=== PATIENT | female | born 1960 | race Caucasian/White ===

== ENCOUNTER → 2019-11-29 13:19 | Outpatient (BNVA) | payer MEDICARE, SELFPAY | PROVIDERS: Visit Provider Nurse Practitioner Family | DX: I10 Essential (primary) hypertension (principal); E11.9 Type 2 diabetes mellitus without complications; J44.9 Chronic obstructive pulmonary disease, unspecified; F32.9 Major depressive disorder, single episode, unspecified; E78.5 Hyperlipidemia, unspecified; E03.9 Hypothyroidism, unspecified; G62.9 Polyneuropathy, unspecified; F17.200 Nicotine dependence, unspecified, uncomplicated; J44.1 Chronic obstructive pulmonary disease with (acute) exacerbation | CPT/HCPCS: 80053; 80061; 83036; 83721; 84443; 85025 ==

== ENCOUNTER → 2020-04-18 10:20 | Outpatient (BNVA) | payer MEDICARE, SELFPAY | PROVIDERS: Visit Provider Nurse Practitioner Family | DX: E11.9 Type 2 diabetes mellitus without complications (principal); E03.9 Hypothyroidism, unspecified | CPT/HCPCS: 80053; 80061; 83036; 83721; 84443; 85025 ==

== ENCOUNTER 2020-05-26 08:23 | Inpatient (IN) | payer MEDICARE, SELFPAY ==
[2020-05-26] VITALS (17 sets, daily range): BP systolic 108–172; BP diastolic 64–94; PULSE 75–92; RESP 15–26; TEMP 36.4–36.8; O2SAT 90–95; BMI 25.5
--- NOTE | 2020-05-26 08:27 | XRR_ITS ---
PROCEDURE INFORMATION: Exam: XR Chest, 1 View Exam date and time: 05/26/2020 8:54 AM Age: 59 years old Clinical indication: Dyspnea TECHNIQUE: Imaging protocol: XR of the chest Views: 1 view. COMPARISON: CTA Chest-Pulmonary Emb [id number] 11/14/2013 6:39 PM FINDINGS: Lungs: COPD, interstitial disease, and chronic granulomatous disease. Mild right basilar airspace disease. Pleural space: Questionable small right pleural effusion. Heart/Mediastinum: No cardiomegaly. Vasculature: Calcification of the thoracic aorta. Bones/joints: Osteopenia, degenerative change, and mild scoliosis. XR/XR chest 1V portable [id number] IMPRESSION: 1. COPD, interstitial disease, and chronic granulomatous disease. 2. Mild right basilar airspace disease.
--- NOTE | 2020-05-26 08:28 | ECG_ITS ---
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 Measurements Intervals [place] Rate: 83 P: 76 SD: 158 QRS: 100 QRSD: 98 T: 61 QT: 384 QTc: 451 Interpretive Statements SINUS RHYTHM POSSIBLE RIGHT VENTRICULAR HYPERTROPHY [SOME/ALL OF: PROMINENT R IN V1, LATE TRANSITION, RAD, BJ, SSS] Compared to ECG 08/21/2017 17:23:41 Atrial abnormality now present Sinus arrhythmia no longer present T-wave abnormality no longer present Electronically Signed On 05-26-2020 13:15:31 CDT by Yanira Slade M.D. [id number] f
--- NOTE | 2020-05-26 08:31 | W.ED.SOB ---
HPI - SOB/Dyspnea General: Chief Complaint: Shortness of Breath/Dyspnea Stated Complaint: RESP DISTRESS Time Seen by Provider: 05/26/20 08:24 Source: patient and EMS Mode of arrival: EMS Limitations: no limitations History of Present Illness: HPI Narrative: Rema is a nice 59-year-old female who comes in complaining of shortness of breath. She arrives via EMS and mild to moderate respiratory distress. She is able to answer questions decently. She denies any fever, loss of sense of taste or loss of sense of smell. She states her cough is worse than baseline and is changed in color from clear to yellow. She has audible wheezing and she states any type of exertion makes her symptoms worse. She is she has no fever or chills but does feel like she may have pneumonia. She denies any leg swelling or orthopnea. She denies any chest pain. Patient states her symptoms started last night and carried into this morning. Patient states that she is been using her oxygen as she is supposed to but this does not make her feel any better. Associated symptoms: Deny abdominal pain, chest congestion, chest pain, diaphoresis, dizziness, extremity pain, fever(s), hemoptysis, lightheadedness, nausea, orthopnea, palpitations, syncope or vomiting Review of Systems Const: Denies: fever(s), chills, body aches, fatigue, malaise or diaphoresis Eyes: Denies: change in vision, blurry vision, photophobia, eye discomfort, eye discharge or eye redness ENMT: Denies: throat pain, odynophagia, hoarseness, swelling of lips/tongue, ear or mastoid pain, ear discharge, change in hearing or nasal discharge Card: Denies: chest pain, palpitations, irregular heart rhythm, edema, lightheadedness, syncope, pre-syncope, dyspnea on exertion or orthopnea Resp: Reports: dyspnea, productive cough and wheezing; Denies: non-productive cough, hemoptysis or chest congestion GI: Denies: abdominal pain, nausea, vomiting, hematemesis, coffee ground emesis, heartburn, diarrhea, constipation, GI cramping, hematochezia or melena : Denies: flank pain, dysuria, urinary frequency, urinary urgency or hematuria Musc: Denies: neck pain, back pain, extremity pain, extremity swelling, joint pain, joint swelling, joint redness, joint warmth or joint stiffness Skin/Breast: Denies: rash, pruritus, erythema or skin tenderness Neuro: Denies: headache(s), numbness in extremities, weakness in extremities, sensory changes, lack of coordination, difficulty walking, dizziness, vertigo, confusion, Slurred speech present or seizure-like activity Alo/Lymph: Denies: easy bruising, easy bleeding, petechiae, purpura or enlarged lymph nodes All/Imm: Denies: urticaria, throat swelling, tongue swelling, facial swelling or acute wheezing PFSH ED PFSH: Medical History COPD (chronic obstructive pulmonary disease) Depression Diabetes Hyperlipidemia Hypothyroid Neuropathy Family History Brother Diabetes Father Cancer Mother Cancer Social History Smoking and tobacco status: current every day smoker cigarettes Packs smoked per day: 1.5 Second hand smoke exposure: No Alcohol intake: never Caregiver/support person: Yes Lives independently: Yes Housing: House Marital status: service: No Current occupational status: retired History of recent travel: No Current gender identity: Female Physical Exam Const: COMMON NORMALS: no acute distress, patient oriented x3, no limitations, healthy appearing and well nourished GENERAL APPEARANCE: cooperative, well kempt and well developed HENMT: COMMON NORMALS: normocephalic, atraumatic, external ears normal, EAC's normal and Normal external nose present HEAD & SCALP: normal to inspection, normocephalic and atraumatic FACE & SINUS: normal facial exam and face symmetric NOSE: Normal external nose present and Normal nares present EXTERNAL EAR: Yes external ears normal EXTERNAL AUDITORY CANAL: EAC's normal MOUTH: Normal oral and palatal mucosa present, lip normal and tongue normal Eye: COMMON NORMALS: Equal, round and reactive pupils present and conjunctivae normal GENERAL EYE: appearance normal, both eyes and all related structures ALIGNMENT: Yes alignment normal PERIORBITAL: periorbital findings normal EYELID: eyelids normal CONJUNCTIVA: Yes conjunctivae normal SCLERA: sclerae normal PUPIL: Yes Equal, round and reactive pupils present Neck/C-Spine: COMMON NORMALS: full ROM, no lymphadenopathy, supple, no meningeal signs and no JVD GENERAL: Yes normal visual inspection and Yes trachea midline Chest: COMMONS NORMALS: normal inspection of the chest and normal palpation of entire chest wall Resp: COMMON NORMALS: normal respiratory effort, No retractions and No use of accessory muscles EFFORT & INSPECTION: Yes able to speak in complete sentences, Yes symmetric chest movement, Yes tachypneic, Yes respiratory distress and Yes Actively coughing AUSCULTATION: no crackles, no rales, rhonchi and wheezes Cardio: COMMON NORMALS: no JVD, regular rate, regular rhythm, S1 normal heart sound present and S2 normal heart sound present RATE: regular rate RHYTHM: regular rhythm HEART SOUNDS: S1 normal heart sound present, S2 normal heart sound present, no click, no gallops, no murmurs, no rubs and abnormal split S2 GI: COMMON NORMALS: Soft to palpation and No hepatosplenomegaly present PALPATION: Yes Soft to palpation, No Tenderness to palpation present (GI), No Guarding due to palpation present (GI), No Rigid due to palpation, Yes No hepatosplenomegaly present, No Hernia present, No Palpable mass present and No Pulsatile mass present : COMMON NORMALS: Yes no CVA tenderness BLADDER/KIDNEY EXAM: Yes no CVA tenderness EXTERNAL FEMALE EXAM: No Hernia present Back/Pelvis: COMMON NORMALS: no CVA tenderness, thoracic and lumbar spine normal to inspection, no thoracic nor lumbar tenderness and thoraco-lumbar ROM normal Extremity: COMMON NORMALS: normal to inspection, full ROM, capillary refill normal, no joint enlargement, no clubbing, cyanosis or edema and no calf tenderness Neuro: COMMON NORMALS: patient oriented x3, CN's II-XII intact bilaterally, moves all extremities, no focal motor deficits and no sensory deficits noted MENINGEAL SIGNS: Yes no meningeal signs SPEECH: speech normal Psych: COMMON NORMALS: mental status grossly normal, Normal thought process present, cooperative, normal affect, speech normal and activity/motor behavior normal APPEARANCE: Yes well kempt SPEECH: Yes normal speech THOUGHT PROCESS: Normal thought process present Skin: COMMON NORMALS: no rashes or lesions noted, turgor normal, no jaundice, no petechiae and no mottling GENERAL SKIN EXAM: no rashes or lesions noted and turgor normal Course Vital Signs: Vital signs: Vital Signs Temperature 98.3 F 05/26/20 08:24 Pulse Rate 75 05/26/20 15:15 Respiratory Rate 24 H 05/26/20 15:15 Blood Pressure 124/74 05/26/20 15:15 Pulse Oximetry 95 05/26/20 15:15 MDM - SOB/Dyspnea MDM Narrative: Medical decision making narrative: 1200 -patient is no longer distress but still has audible wheezing. She still more hypoxic and her norm. Her cough is productive of colored sputum. There is no sign of acute coronary syndrome. Believe the patient will need to be admitted and continue BiPAP for a short time. The case was reviewed with Dr. Meyers and she agrees to come see the patient in the ER. Lab Data: Attestation: I reviewed the patient's lab results. Labs: Lab Results 05/26/20 05/26/20 05/26/20 Range/Units 08:42 08:45 08:45 WBC 5.8 (4.0-10.0) 10^3/ uL RBC 4.99 (4.1-5.3) 10^6/u L Hgb 15.6 H (11.5-15.3) g/dL Hct 48.6 H (37.0-47.0) % MCV 97.4 (81-99) fL MCH 31.3 (28.0-34.0) pg MCHC 32.1 (30.0-36.0) g/dL RDW 13.3 (12.1-15.1) % Plt Count 187 (130-400) 10^3/c mm MPV 10.9 H (7.4-10.4) fL Neut % (Auto) 56.3 % Lymph % (Auto) 26.6 % [place] % (Auto) 11.3 % Eos % (Auto) 4.2 % Baso % (Auto) 0.9 % Neut # (Auto) 3.24 (1.8-7.7) 10^3/u L Lymph # (Auto) 1.5 (0.8-4.8) 10^3/u L [place] # (Auto) 0.7 (0.2-0.9) 10^3/u L Eos # (Auto) 0.2 (0.0-0.8) 10^3/u L Baso # (Auto) 0.1 (0.0-0.1) 10^3/u L Nucleated RBC % (a uto) 0 % Nucleated RBCs # 0.0 /100WBC PT Cancelled INR Cancelled Specimen Type Arterial Sample Site Radial, left ABG pH 7.31 L (7.35-7.45) ABG pCO2 47.4 H (35-45) mmHg ABG pO2 68.6 L (80.0-100.0) mmH g ABG HCO3 24.0 (22-26) mmol/L ABG O2 Saturation 94.3 ABG Base Excess -2.7 L (-2.0-2.0) mmol/ L Phill Test Pos A-a O2 Gradient 13.5 H (5-10) mmHg Hematocrit 48.4 H (37-47) % Hgb O2 Saturation 90.1 L (95-100) % Carboxyhemoglobin 3.8 (0.4-20.1) %THgb Methemoglobin 0.6 (0.4-1.5) % Total Hemoglobin 15.8 (12-16) g/dL Sodium 140.0 (131-143) mmol/L Potassium 4.3 (3.5-5.0) mmol/L Glucose 168.0 H (70-115) mg/dL Ionized Calcium 1.2 (1.1-1.4) mmol/L O2 Delivery Device Nc O2 Liters/Min 3.0 % FiO2 32.0 % Correctional Captain ID Amh Chloride Carbon Dioxide Anion Gap BUN Creatinine GFR Calculation Calculated Osmolal ity Lactic Acid Calcium Magnesium Total Bilirubin AST ALT Alkaline Phosphata se Troponin T Baselin e Troponin T 120 [place] (0-10) ng/L Delta Troponin T (0-10) ABS# NT-Pro-B Natriuret Pep Total Protein Albumin Globulin Procalcitonin (0-0.5) ng/mL Urine Color (Yellow) Urine Appearance (CLEAR) Urine pH (5-7) Ur Specific Gravit y (1.005-1.030) Urine Protein (Negative) Urine Glucose (UA) (Normal) Urine Ketones (Negative) Urine Blood (Negative) Urine Nitrate (Negative) Urine Bilirubin (NEGATIVE) Urine Urobilinogen (Negative) mg/dL Ur Leukocyte Mirela ase (Negative) SARS-CoV-2 Ag (Rap id) (Negative) 05/26/20 05/26/20 05/26/20 Range/Units 08:45 08:45 08:45 WBC (4.0-10.0) 10^3/ uL RBC (4.1-5.3) 10^6/u L Hgb (11.5-15.3) g/dL Hct (37.0-47.0) % MCV (81-99) fL MCH (28.0-34.0) pg MCHC (30.0-36.0) g/dL RDW (12.1-15.1) % Plt Count (130-400) 10^3/c mm MPV (7.4-10.4) fL Neut % (Auto) % Lymph % (Auto) % [place] % (Auto) % Eos % (Auto) % Baso % (Auto) % Neut # (Auto) (1.8-7.7) 10^3/u L Lymph # (Auto) (0.8-4.8) 10^3/u L [place] # (Auto) (0.2-0.9) 10^3/u L Eos # (Auto) (0.0-0.8) 10^3/u L Baso # (Auto) (0.0-0.1) 10^3/u L Nucleated RBC % (a uto) % Nucleated RBCs # /100WBC PT INR Specimen Type Sample Site ABG pH (7.35-7.45) ABG pCO2 (35-45) mmHg ABG pO2 (80.0-100.0) mmH g ABG HCO3 (22-26) mmol/L ABG O2 Saturation ABG Base Excess (-2.0-2.0) mmol/ L Phill Test A-a O2 Gradient (5-10) mmHg Hematocrit (37-47) % Hgb O2 Saturation (95-100) % Carboxyhemoglobin (0.4-20.1) %THgb Methemoglobin (0.4-1.5) % Total Hemoglobin (12-16) g/dL Sodium Cancelled (131-143) mmol/L Potassium Cancelled (3.5-5.0) mmol/L Glucose Cancelled (70-115) mg/dL Ionized Calcium (1.1-1.4) mmol/L O2 Delivery Device O2 Liters/Min % FiO2 % Correctional Captain ID Chloride Cancelled Carbon Dioxide Cancelled Anion Gap Cancelled BUN Cancelled Creatinine Cancelled GFR Calculation Cancelled Calculated Osmolal ity Cancelled Lactic Acid Cancelled Calcium Cancelled Magnesium Cancelled Total Bilirubin Cancelled AST Cancelled ALT Cancelled Alkaline Phosphata se Cancelled Troponin T Baselin e Cancelled Troponin T 120 [place] (0-10) ng/L Delta Troponin T (0-10) ABS# NT-Pro-B Natriuret Pep Cancelled Total Protein Cancelled Albumin Cancelled Globulin Cancelled Procalcitonin (0-0.5) ng/mL Urine Color (Yellow) Urine Appearance (CLEAR) Urine pH (5-7) Ur Specific Gravit y (1.005-1.030) Urine Protein (Negative) Urine Glucose (UA) (Normal) Urine Ketones (Negative) Urine Blood (Negative) Urine Nitrate (Negative) Urine Bilirubin (NEGATIVE) Urine Urobilinogen (Negative) mg/dL Ur Leukocyte Mirela ase (Negative) SARS-CoV-2 Ag (Rap id) (Negative) 05/26/20 05/26/20 05/26/20 Range/Units 09:10 09:40 09:40 WBC (4.0-10.0) 10^3/ uL RBC (4.1-5.3) 10^6/u L Hgb (11.5-15.3) g/dL Hct (37.0-47.0) % MCV (81-99) fL MCH (28.0-34.0) pg MCHC (30.0-36.0) g/dL RDW (12.1-15.1) % Plt Count (130-400) 10^3/c mm MPV (7.4-10.4) fL Neut % (Auto) % Lymph % (Auto) % [place] % (Auto) % Eos % (Auto) % Baso % (Auto) % Neut # (Auto) (1.8-7.7) 10^3/u L Lymph # (Auto) (0.8-4.8) 10^3/u L [place] # (Auto) (0.2-0.9) 10^3/u L Eos # (Auto) (0.0-0.8) 10^3/u L Baso # (Auto) (0.0-0.1) 10^3/u L Nucleated RBC % (a uto) % Nucleated RBCs # /100WBC PT INR Specimen Type Sample Site ABG pH (7.35-7.45) ABG pCO2 (35-45) mmHg ABG pO2 (80.0-100.0) mmH g ABG HCO3 (22-26) mmol/L ABG O2 Saturation ABG Base Excess (-2.0-2.0) mmol/ L Phill Test A-a O2 Gradient (5-10) mmHg Hematocrit (37-47) % Hgb O2 Saturation (95-100) % Carboxyhemoglobin (0.4-20.1) %THgb Methemoglobin (0.4-1.5) % Total Hemoglobin (12-16) g/dL Sodium (131-143) mmol/L Potassium (3.5-5.0) mmol/L Glucose (70-115) mg/dL Ionized Calcium (1.1-1.4) mmol/L O2 Delivery Device O2 Liters/Min % FiO2 % Correctional Captain ID Chloride Carbon Dioxide Anion Gap BUN Creatinine GFR Calculation Calculated Osmolal ity Lactic Acid 2.4 H Calcium Magnesium Total Bilirubin AST ALT Alkaline Phosphata se Troponin T Baselin e 32 H Troponin T 120 [place] (0-10) ng/L Delta Troponin T (0-10) ABS# NT-Pro-B Natriuret Pep Total Protein Albumin Globulin Procalcitonin (0-0.5) ng/mL Urine Color (Yellow) Urine Appearance (CLEAR) Urine pH (5-7) Ur Specific Gravit y (1.005-1.030) Urine Protein (Negative) Urine Glucose (UA) (Normal) Urine Ketones (Negative) Urine Blood (Negative) Urine Nitrate (Negative) Urine Bilirubin (NEGATIVE) Urine Urobilinogen (Negative) mg/dL Ur Leukocyte Mirela ase (Negative) SARS-CoV-2 Ag (Rap id) Negative (Negative) 05/26/20 05/26/20 05/26/20 Range/Units 09:40 09:40 09:40 WBC (4.0-10.0) 10^3/ uL RBC (4.1-5.3) 10^6/u L Hgb (11.5-15.3) g/dL Hct (37.0-47.0) % MCV (81-99) fL MCH (28.0-34.0) pg MCHC (30.0-36.0) g/dL RDW (12.1-15.1) % Plt Count (130-400) 10^3/c mm MPV (7.4-10.4) fL Neut % (Auto) % Lymph % (Auto) % [place] % (Auto) % Eos % (Auto) % Baso % (Auto) % Neut # (Auto) (1.8-7.7) 10^3/u L Lymph # (Auto) (0.8-4.8) 10^3/u L [place] # (Auto) (0.2-0.9) 10^3/u L Eos # (Auto) (0.0-0.8) 10^3/u L Baso # (Auto) (0.0-0.1) 10^3/u L Nucleated RBC % (a uto) % Nucleated RBCs # /100WBC PT 20.60 H INR 1.70 H Specimen Type Sample Site ABG pH (7.35-7.45) ABG pCO2 (35-45) mmHg ABG pO2 (80.0-100.0) mmH g ABG HCO3 (22-26) mmol/L ABG O2 Saturation ABG Base Excess (-2.0-2.0) mmol/ L Phill Test A-a O2 Gradient (5-10) mmHg Hematocrit (37-47) % Hgb O2 Saturation (95-100) % Carboxyhemoglobin (0.4-20.1) %THgb Methemoglobin (0.4-1.5) % Total Hemoglobin (12-16) g/dL Sodium 136 (131-143) mmol/L Potassium 4.5 (3.5-5.0) mmol/L Glucose 165 H (70-115) mg/dL Ionized Calcium (1.1-1.4) mmol/L O2 Delivery Device O2 Liters/Min % FiO2 % Correctional Captain ID Chloride 102 Carbon Dioxide 22 Anion Gap 16.5 BUN 13 Creatinine 0.7 GFR Calculation 86.2 L Calculated Osmolal ity 282 L Lactic Acid Calcium 9.2 Magnesium 2.1 Total Bilirubin 0.3 AST 15 ALT 20 Alkaline Phosphata se 76 Troponin T Baselin e Troponin T 120 [place] (0-10) ng/L Delta Troponin T (0-10) ABS# NT-Pro-B Natriuret Pep 41 Total Protein 7.5 Albumin 4.1 Globulin 3.4 Procalcitonin 0.06 (0-0.5) ng/mL Urine Color (Yellow) Urine Appearance (CLEAR) Urine pH (5-7) Ur Specific Gravit y (1.005-1.030) Urine Protein (Negative) Urine Glucose (UA) (Normal) Urine Ketones (Negative) Urine Blood (Negative) Urine Nitrate (Negative) Urine Bilirubin (NEGATIVE) Urine Urobilinogen (Negative) mg/dL Ur Leukocyte Mirela ase (Negative) SARS-CoV-2 Ag (Rap id) (Negative) 05/26/20 05/26/20 05/26/20 Range/Units 09:40 11:00 11:00 WBC (4.0-10.0) 10^3/ uL RBC (4.1-5.3) 10^6/u L Hgb (11.5-15.3) g/dL Hct (37.0-47.0) % MCV (81-99) fL MCH (28.0-34.0) pg MCHC (30.0-36.0) g/dL RDW (12.1-15.1) % Plt Count (130-400) 10^3/c mm MPV (7.4-10.4) fL Neut % (Auto) % Lymph % (Auto) % [place] % (Auto) % Eos % (Auto) % Baso % (Auto) % Neut # (Auto) (1.8-7.7) 10^3/u L Lymph # (Auto) (0.8-4.8) 10^3/u L [place] # (Auto) (0.2-0.9) 10^3/u L Eos # (Auto) (0.0-0.8) 10^3/u L Baso # (Auto) (0.0-0.1) 10^3/u L Nucleated RBC % (a uto) % Nucleated RBCs # /100WBC PT INR Specimen Type Arterial Sample Site Radial, right ABG pH 7.31 L (7.35-7.45) ABG pCO2 45.3 H (35-45) mmHg ABG pO2 72.7 L (80.0-100.0) mmH g ABG HCO3 22.8 (22-26) mmol/L ABG O2 Saturation ABG Base Excess -3.7 L (-2.0-2.0) mmol/ L Phill Test Pos A-a O2 Gradient (5-10) mmHg Hematocrit 48.7 H (37-47) % Hgb O2 Saturation (95-100) % Carboxyhemoglobin (0.4-20.1) %THgb Methemoglobin (0.4-1.5) % Total Hemoglobin (12-16) g/dL Sodium (131-143) mmol/L Potassium (3.5-5.0) mmol/L Glucose (70-115) mg/dL Ionized Calcium (1.1-1.4) mmol/L O2 Delivery Device Bipap O2 Liters/Min % FiO2 32.0 % Correctional Captain ID Amh Chloride Carbon Dioxide Anion Gap BUN Creatinine GFR Calculation Calculated Osmolal ity Lactic Acid Calcium Magnesium Total Bilirubin AST ALT Alkaline Phosphata se Troponin T Baselin e Troponin T 120 [place] (0-10) ng/L Delta Troponin T (0-10) ABS# NT-Pro-B Natriuret Pep 39 Total Protein Albumin Globulin Procalcitonin (0-0.5) ng/mL Urine Color Yellow (Yellow) Urine Appearance Clear (CLEAR) Urine pH 5 (5-7) Ur Specific Gravit y 1.020 (1.005-1.030) Urine Protein Neg (Negative) Urine Glucose (UA) 4+ H (Normal) Urine Ketones Negative (Negative) Urine Blood Neg (Negative) Urine Nitrate Negative (Negative) Urine Bilirubin Neg (NEGATIVE) Urine Urobilinogen Norm (Negative) mg/dL Ur Leukocyte Mirela ase Negative (Negative) SARS-CoV-2 Ag (Rap id) (Negative) 05/26/20 Range/Units 11:56 WBC (4.0-10.0) 10^3/ uL RBC (4.1-5.3) 10^6/u L Hgb (11.5-15.3) g/dL Hct (37.0-47.0) % MCV (81-99) fL MCH (28.0-34.0) pg MCHC (30.0-36.0) g/dL RDW (12.1-15.1) % Plt Count (130-400) 10^3/c mm MPV (7.4-10.4) fL Neut % (Auto) % Lymph % (Auto) % [place] % (Auto) % Eos % (Auto) % Baso % (Auto) % Neut # (Auto) (1.8-7.7) 10^3/u L Lymph # (Auto) (0.8-4.8) 10^3/u L [place] # (Auto) (0.2-0.9) 10^3/u L Eos # (Auto) (0.0-0.8) 10^3/u L Baso # (Auto) (0.0-0.1) 10^3/u L Nucleated RBC % (a uto) % Nucleated RBCs # /100WBC PT INR Specimen Type Sample Site ABG pH (7.35-7.45) ABG pCO2 (35-45) mmHg ABG pO2 (80.0-100.0) mmH g ABG HCO3 (22-26) mmol/L ABG O2 Saturation ABG Base Excess (-2.0-2.0) mmol/ L Phill Test A-a O2 Gradient (5-10) mmHg Hematocrit (37-47) % Hgb O2 Saturation (95-100) % Carboxyhemoglobin (0.4-20.1) %THgb Methemoglobin (0.4-1.5) % Total Hemoglobin (12-16) g/dL Sodium (131-143) mmol/L Potassium (3.5-5.0) mmol/L Glucose (70-115) mg/dL Ionized Calcium (1.1-1.4) mmol/L O2 Delivery Device O2 Liters/Min % FiO2 % Correctional Captain ID Chloride Carbon Dioxide Anion Gap BUN Creatinine GFR Calculation Calculated Osmolal ity Lactic Acid Calcium Magnesium Total Bilirubin AST ALT Alkaline Phosphata se Troponin T Baselin e Troponin T 120 [place] 34.38 H (0-10) ng/L Delta Troponin T 2.38 (0-10) ABS# NT-Pro-B Natriuret Pep Total Protein Albumin Globulin Procalcitonin (0-0.5) ng/mL Urine Color (Yellow) Urine Appearance (CLEAR) Urine pH (5-7) Ur Specific Gravit y (1.005-1.030) Urine Protein (Negative) Urine Glucose (UA) (Normal) Urine Ketones (Negative) Urine Blood (Negative) Urine Nitrate (Negative) Urine Bilirubin (NEGATIVE) Urine Urobilinogen (Negative) mg/dL Ur Leukocyte Mirela ase (Negative) SARS-CoV-2 Ag (Rap id) (Negative) Imaging Data^: CXR: Attestation: I personally reviewed and interpreted this imaging study as follows: My impression: No acute cardiopulmonary findings. EKG Data^: EKG 1: Attestation: I personally reviewed and interpreted this EKG as follows: EKG Interpretation Date: 05/26/20 EKG interpretation time: 08:35 Interpretation: Normal sinus rhythm at 83 beats a minute, no blocks, normal intervals, no acute ST-T wave changes. EKG 2: Attestation: I personally reviewed and interpreted this EKG as follows: EKG Interpretation Date: 05/26/20 EKG interpretation time: 11:17 Interpretation: Normal sinus rhythm 81 beats a minute, no blocks, normal intervals, nonspecific ST and T wave changes. Discharge Plan Discharge Patient Disposition: Placed in Observation Admit Provider: Lia Meyers Clinical Impression: Acute exacerbation of chronic obstructive airways disease Condition: Stable Coding Level of Care Code ED Pc Technician for Chg Fwd Exam Comprehensive
[2020-05-26 08:54] LABS: ABG PCO2 47.4 mmHg (35-45); ABG PH Result 7.31 (7.35-7.45); Alveolar-Arterial Oxygen Gradi 13.5 mmHg (5-10); Arterial Blood Gas Hematocrit 48.4 % (37-47); Base Excess ABG -2.7 mmol/L (-2.0-2.0); Blood Gas Allen Test Pos; Blood Gas Operator Identificat AMH; Blood Gas Sample Site Radial, left; Blood Gas Sample Type Arterial; Carboxyhemoglobin 3.8 %THgb (0.4-20.1); HGB O2 Sat 90.1 % (95-100); Ionized Calcium Level - ABG 1.2 mmol/L (1.1-1.4); Methemoglobin 0.6 % (0.4-1.5); Oxygen Device NC; Oxygen Saturation ABG 94.3; PO2 ABG 68.6 mmHg (80.0-100.0); Potassium Level - ABG 4.3 mmol/L (3.5-5.0); Total Hemoglobin 15.8 g/dL (12-16)
[2020-05-26] MEDS: ipratropium-albuterol 3 mL Neb 9 ML INHALATION (09:10)
[2020-05-26 09:19] LABS: Basophils # 0.1 10^3/uL (0.0-0.1); Basophils % 0.9 %; Eosinophils # 0.2 10^3/uL (0.0-0.8); Eosinophils % 4.2 %; Hematocrit 48.6 % (37.0-47.0); Hemoglobin 15.6 g/dL (11.5-15.3); Lymphocytes # 1.5 10^3/uL (0.8-4.8); Lymphocytes % 26.6 %; Mean Corpuscular HGB Conc 32.1 g/dL (30.0-36.0); Mean Corpuscular Hemoglobin 31.3 pg (28.0-34.0); Mean Corpuscular Volume 97.4 fL (81-99); Mean Platelet Volume 10.9 fL (7.4-10.4); Monocytes # 0.7 10^3/uL (0.2-0.9); Monocytes % 11.3 %; Neutrophils # 3.24 10^3/uL (1.8-7.7); Neutrophils % 56.3 %; Nucleated Red Blood Cells % 0 %; Platelet Count 187 10^3/cmm (130-400); Red Blood Count 4.99 10^6/uL (4.1-5.3); Red Cell Distribution Width 13.3 % (12.1-15.1); White Blood Count 5.8 10^3/uL (4.0-10.0)
[2020-05-26 09:49] LABS: SARS Covid-2 Antigen Negative (Negative)
[2020-05-26 10:13] LABS: Lactic Sepsis W/Reflex 2.4 mmol/L (0.5-2.2)
[2020-05-26 10:14] LABS: Troponin(5th) Baseline 32 ng/L (0-10)
[2020-05-26 10:23] LABS: Alanine Aminotransferase 20 U/L (0-33); Albumin Level 4.1 g/dL (3.5-5.2); Anion Gap 16.5 (5-19); Aspartate Amino Transferase 15 U/L (0-32); Blood Urea Nitrogen 13 mg/dL (6-20); Calcium 9.2 mg/dL (8.5-10.5); Carbon Dioxide 22 mmol/L (22-29); Chloride 102 mmol/L (98-107); Globulin 3.4 g/dL (1.3-4.6); Glomerular Filtration Rate 86.2 mL/min (90-130); Glucose 165 mg/dL (65-115); Magnesium 2.1 mg/dL (1.7-2.3); NT Pro B Type Natriuretic Pept 41 pg/mL (0-125); Osmolality Calculated 282 mOsm/kg (285-295); Potassium 4.5 mmol/L (3.5-5.1); Sodium 136 mmol/L (136-145); Total Bilirubin 0.3 mg/dL (0.15-1.2); Total Protein 7.5 g/dL (6.6-8.7)
[2020-05-26 10:24] LABS: Alkaline Phosphatase 76 IU/L (35-105)
--- NOTE | 2020-05-26 10:28 | ECG_ITS ---
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 Measurements Intervals [place] Rate: 81 P: 75 SD: 164 QRS: 99 QRSD: 93 T: 56 QT: 382 QTc: 444 Interpretive Statements SINUS RHYTHM BORDERLINE RIGHT AXIS DEVIATION [QRS AXIS > 90] MODERATE ST DEPRESSION [0.05+ mV ST DEPRESSION] Compared to ECG 05/26/2020 08:35:33 ST (T wave) deviation now present Atrial abnormality no longer present Electronically Signed On 05-26-2020 13:20:39 CDT by Yanira Slade M.D. [id number]
[2020-05-26 10:37] LABS: Reflex Lactate Order REFLEX LACTIC ORDERD
[2020-05-26 11:11] LABS: ABG PCO2 45.3 mmHg (35-45); ABG PH Result 7.31 (7.35-7.45); Arterial Blood Gas Hematocrit 48.7 % (37-47); Base Excess ABG -3.7 mmol/L (-2.0-2.0); Blood Gas Allen Test Pos; Blood Gas Operator Identificat AMH; Blood Gas Sample Site Radial, right; Blood Gas Sample Type Arterial; HCO3 ABG 22.8 mmol/L (22-26); Oxygen Device BIPAP; PO2 ABG 72.7 mmHg (80.0-100.0)
[2020-05-26 11:41] LABS: Add Urine Microscopic? NO
[2020-05-26 11:49] LABS: Bilirubin Urine Neg (NEGATIVE); Blood Urine Neg (Negative); Glucose Urine UA 4+ (Normal); Ketones Urine Negative (Negative); Leukocyte Esterase Urine Negative (Negative); Nitrate Urine Negative (Negative); Protein Urine Neg (Negative); Urine Appearance Clear (CLEAR); Urine Color Yellow (Yellow); Urobilinogen Urine Norm (Negative); pH Urine 5 (5-7)
[2020-05-26] MEDS: sodium chloride 0.9% 1,000 ML 999 ML IV (12:16)
[2020-05-26] MEDS: cefTRIAXone 1,000 MG in sodium chloride 0.9% (plus) 50 ML 100 MG IV (12:16)
[2020-05-26] MEDS: doxycycline 100 MG in sodium chloride 0.9% (plus) 100 ML IV (12:16)
[2020-05-26 12:27] LABS: Troponin 5 2HR 34.38 ng/L (0-10); Troponin 5 2HR Delta 2.38 ABS# (0-10)
--- NOTE | 2020-05-26 13:06 | PM.HP ---
Providers/Chief Complaint Admitting Physician: Lia Meyers MD Chief Complaint: RESP DISTRESS History of Present Illness Rema Brandt is a 59 year old female with PMH COPD, on home 02 at night and with exertion, DM, HTN, chronic pain current smoker p/w 3-4 days of worsening sputum production, nasal congestion. No sore throat or fever. Her daughter and granddaughter who recently went back to school has been having the same symptoms and have been diagnosed with sinusitis and seasonal allergies. On arrival at ER, she was noted to have hypoxic hypercapneic respiratory failure. She was started on Bipap due to some degree of resp distress but then refused it as it makes her claustrophobic. At time of exam, she is currently improved, saturating well on 3lpm NC. Review of Systems General: Reports: 10 or more systems reviewed and unremarkable except in HPI and below Const: Denies: fever(s), chills or body aches Eyes: Denies: change in vision, blurry vision or photophobia ENMT: Reports: hoarseness; Denies: throat pain, enlarged tonsils, odynophagia or nasal congestion Card: Denies: chest pain, palpitations, irregular heart rhythm, edema, swelling of feet/ankles, lightheadedness, pre-syncope, dyspnea on exertion or orthopnea Resp: Denies: dyspnea, productive cough, non-productive cough, wheezing, stridor, pain on inspiration, change in phlegm color, hemoptysis or chest congestion GI: Denies: abdominal pain, nausea, vomiting, hematemesis, coffee ground emesis, dysphagia, heartburn, diarrhea, constipation, GI cramping, change in stool character, hematochezia or melena : Denies: flank pain, difficulty voiding, dysuria, urinary frequency, urinary urgency, urinary hesitancy or hematuria Musc: Denies: neck pain, back pain, extremity pain, joint swelling, joint warmth or deformity Neuro: Denies: headache(s), numbness in extremities, weakness in extremities, sensory changes, difficulty walking, frequent falls, dizziness, vertigo, behavioral changes, Slurred speech present or seizure-like activity Psych: Denies: anxiety, depression, suicidal ideation or homicidal ideation Endo: Denies: polyuria, polydipsia, tired all the time, cold intolerance or hot flashes Alo/Lymph: Denies: easy bruising or easy bleeding Medications/Allergies Home Medications Medication Instructions Recorded Confirmed Last Taken Type albuterol sulfate 2.5 mg INHALATION Q4H PRN 11/29/19 05/26/20 Unknown History gabapentin 300 mg capsule 600 mg PO QID cap 11/29/19 05/26/20 05/26/20 History sennosides 8.6 mg-docusate sodium 2 tab-cap PO BEDTIME tab 11/29/19 05/26/20 05/25/20 History 50 mg tablet tramadol 50 mg tablet 50 mg PO Q8H PRN 11/29/19 05/26/20 Unknown History levothyroxine 175 mcg tablet 175 mcg PO DAILY #30 tab 03/05/20 05/26/20 05/25/20 Rx albuterol sulfate 90 mcg/actuation 2 puff INHALATION Q6H PRN #18 gm 04/06/20 05/26/20 Unknown Rx aerosol inhaler atorvastatin 80 mg tablet 80 mg PO DAILY #30 tab 04/06/20 05/26/20 05/25/20 Rx buspirone 15 mg tablet 15 mg PO TID #90 tab 04/06/20 05/26/20 05/26/20 Rx dapagliflozin 10 mg tablet 10 mg PO DAILY #30 tab 04/06/20 05/26/20 05/26/20 Rx metformin 500 mg tablet 1,000 mg PO BID #120 tab 04/06/20 05/26/20 05/26/20 Rx paroxetine HCl 40 mg tablet 40 mg PO DAILY #30 tab 04/06/20 05/26/20 05/25/20 Rx rivaroxaban 20 mg tablet 20 mg PO DAILY #30 tab 04/06/20 05/26/20 05/26/20 Rx fenofibrate nanocrystallized 160 160 mg PO DAILY #90 tab 04/20/20 05/26/20 05/25/20 Rx mg tablet glipizide 5 mg tablet 5 mg PO BID #180 tab 04/20/20 05/26/20 05/26/20 Rx ropinirole 1 mg PO BEDTIME 05/26/20 05/26/20 05/25/20 History Allergies Allergy/AdvReac Type Severity Reaction Status Date / Time Penicillins Allergy Unknown Verified 05/26/20 08:29 Sulfa (Sulfonamide Allergy ALGY-Hives Verified 05/26/20 08:29 Antibiotics) PFSH Acute PFSH: Medical History COPD (chronic obstructive pulmonary disease) Depression Diabetes Hyperlipidemia Hypothyroid Neuropathy Surgical History (Updated 05/26/20 @ 21:21 by Lia Meyers MD) History of colposcopy Hx of cholecystectomy Family History Brother Diabetes Father Cancer Mother Cancer Social History Smoking and tobacco status: current every day smoker cigarettes Packs smoked per day: 1.5 Second hand smoke exposure: No Alcohol intake: never Caregiver/support person: Yes Lives independently: Yes Housing: House Marital status: service: No Current occupational status: retired History of recent travel: No Current gender identity: Female Vitals/I&O/Wt Last Vital Signs Temp 98.3 F 05/26/20 08:24 Pulse 82 05/26/20 09:10 Resp 25 H 05/26/20 09:10 BP 172/94 05/26/20 08:24 Pulse Ox 94 05/26/20 09:10 Weight last 48 hrs Weight 78.471 kg Physical Exam Narrative: EXAM NARRATIVE: GEN: Awake, alert and oriented, no acute distress CVS: S1S2 N RS: CTA B/L Abd: Soft, nt/nd , bs+ 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: no focal neuro deficits Data : 05/26/20 08:45 05/26/20 09:40 Micro: Microbiology 05/26/20 08:45 Blood Culture - Preliminary Blood SPECIMEN COLLECTED 05/26/20 09:00 Blood Culture - Preliminary Blood SPECIMEN COLLECTED A&P Assessment and plan (1) Acute exacerbation of chronic obstructive airways disease: Status: Acute (2) On home oxygen therapy: Status: Acute (3) Diabetes: Status: Acute Qualifiers: Diabetes mellitus type: type 2 Diabetes mellitus detention insulin use: without spindle repairer use Diabetes mellitus complication status: without complication Qualified Code(s): E11.9 - Type 2 diabetes mellitus without complications (4) Hypothyroid: Status: Acute Qualifiers: Hypothyroidism type: acquired Qualified Code(s): E03.9 - Hypothyroidism, unspecified (5) Hyperlipidemia: Status: Acute Qualifiers: Hyperlipidemia type: unspecified Qualified Code(s): E78.5 - Hyperlipidemia, unspecified (6) Hypertension: Status: Acute Qualifiers: Hypertension type: essential hypertension Qualified Code(s): I10 - Essential (primary) hypertension (7) Nicotine dependence: Status: Acute Additional A&P Information # Hypoxic hypercapneic respiratory failure likely 2/2 COPD exacerbation Covid ag negetaive, check PCR given multiple hosuehold contacts with URI symptoms incl grandchild that recently started school Albuterol inhalation every q4h rhett , change to duonebs once COVID PCR returns methylprednisone 30mg iv q8h Not tolerating Bipap, HFNC if needed further empiric CTX for now suppelemntal 02 #DM: insulin sliding scale # hyperlidpidemia: continue statins # continue home medicatiosn for HTN DVt ppx: on Xarelto full code Attestations Medical Necessity Statement*: >2MN anticipated for hypoxic hypercapneic respiratory fialure Coding Level of Care Code Acute Ground Support Equipment Assembler for g Fwd Diagnoses Acute exacerbation of chronic obstructive airways disease J44.1 On home oxygen therapy Z99.81 Diabetes E11.9 Diabetes mellitus type: type 2 Diabetes mellitus detention insulin use: without spindle repairer use Diabetes mellitus complication status: without complication Hypothyroid E03.9 Hypothyroidism type: acquired Hyperlipidemia E78.5 Hyperlipidemia type: unspecified Hypertension I10 Hypertension type: essential hypertension Nicotine dependence F17.200
[2020-05-26 13:32] LABS: NT Pro B Type Natriuretic Pept 39 pg/mL (0-125); Procalcitonin 0.06 ng/mL (0-0.5)
[2020-05-26 14:05] LABS: Lactic Acid level (Lactate) 2.6 mmol/L (0.5-2.2)
--- NOTE | 2020-05-26 14:28 | ECG_ITS ---
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 Measurements Intervals [place] Rate: 77 P: 81 IA: 159 QRS: 92 QRSD: 101 T: 54 QT: 412 QTc: 468 Interpretive Statements SINUS RHYTHM BORDERLINE RIGHT AXIS DEVIATION [QRS AXIS > 90] NONSPECIFIC T-WAVE ABNORMALITY Compared to ECG 05/26/2020 11:17:43 T-wave abnormality now present ST (T wave) deviation no longer present Electronically Signed On 05-28-2020 8:31:09 CDT by Yanira Slade M.D. [id number]
[2020-05-26] MEDS: sodium chloride 0.9% 1,000 ML 100 ML IV (14:55)
[2020-05-26 15:32] LABS: Influenza A by IFA Negative (Negative); Influenza B by IFA Negative (Negative)
[2020-05-26] MEDS: albuterol 8 gm MDI 2 PUFF INHALATION (16:05)
[2020-05-26 16:51] LABS: Glucose Point of Care 280 mg/dL (70-110)
[2020-05-26 16:54] LABS: Troponin 5 6HR 20.22 ng/L (0-10)
[2020-05-26 21:39] LABS: Glucose Point of Care 253 mg/dL (70-110)
[2020-05-26] MEDS: sennosides-docusate Tablet 2 TAB PO (22:59)
[2020-05-26] MEDS: ropinirole 1 mg Tablet PO (22:59)
[2020-05-26] MEDS: gabapentin 300 mg Capsule 600 MG PO (22:59)
[2020-05-26] MEDS: TRAMadol 50 mg Tablet PO (23:00)
[2020-05-27] VITALS (7 sets, daily range): BP systolic 115–125; BP diastolic 72–77; PULSE 66–78; RESP 15–20; TEMP 36.4–36.6; O2SAT 87–96
[2020-05-27] MEDS: sodium chloride 0.9% 1,000 ML 100 ML IV ×2 (04:59→14:29)
[2020-05-27 06:17] LABS: Basophils % 0.3 %; Hematocrit 43.1 % (37.0-47.0); Hemoglobin 13.9 g/dL (11.5-15.3); Lymphocytes # 1.1 10^3/uL (0.8-4.8); Lymphocytes % 15.8 %; Mean Corpuscular HGB Conc 32.3 g/dL (30.0-36.0); Mean Corpuscular Hemoglobin 30.8 pg (28.0-34.0); Mean Corpuscular Volume 95.4 fL (81-99); Mean Platelet Volume 10.7 fL (7.4-10.4); Monocytes # 0.5 10^3/uL (0.2-0.9); Monocytes % 6.7 %; Neutrophils # 5.51 10^3/uL (1.8-7.7); Neutrophils % 76.5 %; Nucleated Red Blood Cells % 0 %; Platelet Count 206 10^3/cmm (130-400); Red Blood Count 4.52 10^6/uL (4.1-5.3); White Blood Count 7.2 10^3/uL (4.0-10.0)
[2020-05-27 06:43] LABS: Alanine Aminotransferase 17 U/L (0-33); Albumin Level 3.9 g/dL (3.5-5.2); Alkaline Phosphatase 67 IU/L (35-105); Anion Gap 12.4 (5-19); Aspartate Amino Transferase 15 U/L (0-32); Blood Urea Nitrogen 17 mg/dL (6-20); Carbon Dioxide 27 mmol/L (22-29); Chloride 105 mmol/L (98-107); Glucose 150 mg/dL (65-115); Osmolality Calculated 289 mOsm/kg (285-295); Potassium 4.4 mmol/L (3.5-5.1); Sodium 140 mmol/L (136-145); Total Bilirubin 0.3 mg/dL (0.15-1.2); Total Protein 6.9 g/dL (6.6-8.7)
[2020-05-27] MEDS: atorvastatin 40 mg Tablet 80 MG PO (09:05)
[2020-05-27] MEDS: azithromycin 250 mg Tablet 500 MG PO (09:05)
[2020-05-27] MEDS: levothyroxine 150 mcg Tablet PO (09:06)
[2020-05-27] MEDS: gabapentin 300 mg Capsule 600 MG PO ×2 (09:06→12:12)
[2020-05-27] MEDS: pantoprazole DR 40 mg Tablet PO (09:07)
[2020-05-27] MEDS: nicotine 14 mg Patch 1 PATCH TRANSDERMA (09:07)
[2020-05-27] MEDS: PARoxetine 20 mg Tablet 40 MG PO (09:07)
[2020-05-27] MEDS: levothyroxine 25 mcg Tablet PO (09:07)
[2020-05-27] MEDS: rivaroxaban 10 mg Tablet 20 MG PO (09:07)
--- NOTE | 2020-05-27 11:11 | PC.NURSE ---
Pt's bracelet was damaged and could not scan for point of care check. Was able to verify correct name and date of . Blood sugar was 215 on point of care. Insulin given per sliding scale.
[2020-05-27] MEDS: cefTRIAXone 1,000 MG in sodium chloride 0.9% (plus) 50 ML 100 MG IV (12:12)
[2020-05-27] MEDS: TRAMadol 50 mg Tablet PO (14:34)
--- NOTE | 2020-05-27 16:09 | PM.DCS ---
Discharge Providers Date of Admission: 05/26/20 12:41 Date of Discharge: May 27, 2020 Attending Provider at Admission: Lia Meyers MD Attending Provider at Discharge: Lia Meyers MD Diagnoses at Discharge Discharge Diagnosis (1) Acute exacerbation of chronic obstructive airways disease: Status: Acute (2) On home oxygen therapy: Status: Acute (3) Diabetes: Status: Acute Qualifiers: Diabetes mellitus type: type 2 Diabetes mellitus penitentiary insulin use: without penitentiary use Diabetes mellitus complication status: without complication Qualified Code(s): E11.9 - Type 2 diabetes mellitus without complications (4) Hypothyroid: Status: Acute Qualifiers: Hypothyroidism type: acquired Qualified Code(s): E03.9 - Hypothyroidism, unspecified (5) Hyperlipidemia: Status: Acute Qualifiers: Hyperlipidemia type: unspecified Qualified Code(s): E78.5 - Hyperlipidemia, unspecified (6) Hypertension: Status: Acute Qualifiers: Hypertension type: essential hypertension Qualified Code(s): I10 - Essential (primary) hypertension (7) Nicotine dependence: Status: Acute Reason for Visit Reason for Visit: RESP DISTRESS Hospital Course Discharge Summary: Rema Brandt is a 59 year old female with PMH COPD, on home 02 at night and with exertion, DM, HTN, chronic pain current smoker p/w 3-4 days of worsening sputum production, nasal congestion. No sore throat or fever. On arrival at ER, she was noted to have hypoxic hypercapneic respiratory failure. She was started on Bipap due to some degree of resp distress but then refused it as it makes her claustrophobic. At time of exam, she is currently improved, saturating well on 3-4lpm NC. Overall impression is that of acute on chronic COPD excerbation. # Hypoxic hypercapneic respiratory failure likely due COPD exacerbation Covid ag negetaive, check PCR given multiple hosuehold contacts with URI symptoms incl grandchild that recently started school. PCR remains pending at discharge. Patient instructed on self isolation in the home until results can be obtained. Albuterol inhalation every q4h rhett methylprednisone 30mg iv q8h Not tolerating Bipap, however she is significantly clinically improved and does not require this at the present time. She wishes to go home today Being discharged on po prednisone, po levaquin Home 02 evaluation Physical Exam Narrative: EXAM NARRATIVE: GEN: Awake, alert and oriented, no acute distress CVS: S1S2 N RS: CTA B/L Abd: Soft, nt/nd , bs+ BLIND HOOKER: no focal neuro deficits Discharge Data Data Completed and Pending: Completed Studies During Hospitalization Category Date Time Status XR chest 1V neymar ble [id number] Stat Exams 05/26/20 08:27 Completed Pending at discharge Category Date Time Status Blood Culture Sta t Lab 05/26/20 08:45 Results Coronavirus Lab T est PTC Routine Lab 05/26/20 14:55 Received Labs from last 24 hours 05/27/20 05/27/20 05/26/20 05:15 05:15 21:25 WBC 7.2 RBC 4.52 Hgb 13.9 Hct 43.1 MCV 95.4 MCH 30.8 MCHC 32.3 RDW 13.0 Plt Count 206 MPV 10.7 H Neut % (Auto) 76.5 Lymph % (Auto) 15.8 Turner % (Auto) 6.7 Eos % (Auto) 0.0 Baso % (Auto) 0.3 Neut # (Auto) 5.51 Lymph # (Auto) 1.1 Turner # (Auto) 0.5 Eos # (Auto) 0.0 Baso # (Auto) 0.0 Nucleated RBC % (a uto) 0 Nucleated RBCs # 0.0 Sodium 140 Potassium 4.4 Chloride 105 Carbon Dioxide 27 Anion Gap 12.4 BUN 17 Creatinine 0.6 GFR Calculation 103.0 Glucose 150 H POC Glucose 253 Calculated Osmolal ity 289 Calcium 9.0 Total Bilirubin 0.3 AST 15 ALT 17 Alkaline Phosphata se 67 Troponin T Hi Sens 6Hr Troponin T Hi Sens 6Hr Delta Total Protein 6.9 Albumin 3.9 Globulin 3.0 05/26/20 05/26/20 16:38 16:00 WBC RBC Hgb Hct MCV MCH MCHC RDW Plt Count MPV Neut % (Auto) Lymph % (Auto) Turner % (Auto) Eos % (Auto) Baso % (Auto) Neut # (Auto) Lymph # (Auto) Turner # (Auto) Eos # (Auto) Baso # (Auto) Nucleated RBC % (a uto) Nucleated RBCs # Sodium Potassium Chloride Carbon Dioxide Anion Gap BUN Creatinine GFR Calculation Glucose POC Glucose 280 Calculated Osmolal ity Calcium Total Bilirubin AST ALT Alkaline Phosphata se Troponin T Hi Sens 6Hr 20.22 H Troponin T Hi Sens 6Hr Delta -11.78 L Total Protein Albumin Globulin Vitals: Last Vital Signs Temp 97.7 F 05/27/20 14:00 Pulse 78 05/27/20 14:00 Resp 18 05/27/20 14:00 BP 125/77 05/27/20 14:00 Pulse Ox 94 05/27/20 14:00 Discharge Plan Discharge Patient Disposition: Home Condition: Stable Prescriptions: New pantoprazole 40 mg Tablet,Delayed Release (Dr/Ec) 40 mg PO DAILY 14 Days Qty: 14 RF: 0 levofloxacin 750 mg tablet 750 mg PO DAILY 3 Days Qty: 3 RF: 0 prednisone 20 mg tablet 40 mg PO DAILY 5 Days RF: 0 nicotine 21 mg/24 hr patch 24 hour 1 patch TRANSDERMA Q24H 14 Days Qty: 14 RF: 0 nicotine 14 mg/24 hr patch 24 hour 1 patch TRANSDERMA DAILY 14 Days Qty: 14 RF: 0 nicotine 7 mg/24 hr patch 24 hour 1 patch TRANSDERMA DAILY 14 Days Qty: 14 RF: 0 Continued tramadol 50 mg tablet 50 mg PO Q8H PRN (Reason: Pain) RF: 0 albuterol sulfate 2.5 mg /3 mL (0.083 %) solution for nebulization 2.5 mg INHALATION Q4H PRN (Reason: Shortness Of Breath) RF: 0 gabapentin [Neurontin] 300 mg capsule 600 mg PO QID RF: 0 sennosides-docusate sodium [Senokot-S] 8.6-50 mg tablet 2 tab-cap PO BEDTIME RF: 0 atorvastatin 80 mg tablet 80 mg PO DAILY Qty: 30 RF: 2 paroxetine HCl 40 mg tablet 40 mg PO DAILY Qty: 30 RF: 2 metformin 500 mg tablet 1,000 mg PO BID Qty: 120 RF: 2 Xarelto 20 mg tablet 20 mg PO DAILY Qty: 30 RF: 2 buspirone 15 mg tablet 15 mg PO TID Qty: 90 RF: 2 Farxiga 10 mg tablet 10 mg PO DAILY Qty: 30 RF: 2 albuterol sulfate [ProAir HFA] 90 mcg/actuation HFA aerosol inhaler 2 puff INHALATION Q6H PRN (Reason: shortness of breath or wheezing) Qty: 18 RF: 2 levothyroxine 175 mcg tablet 175 mcg PO DAILY Qty: 30 RF: 6 fenofibrate nanocrystallized 160 mg tablet 160 mg PO DAILY Qty: 90 RF: 0 glipizide 5 mg tablet 5 mg PO BID Qty: 180 RF: 0 ropinirole 1 mg Tablet 1 mg PO BEDTIME RF: 0 Discharge Orders: Discharge Order (Routine); Ordered 05/27/20 Ordered By: Lia Meyers Discharge Diet: Usual diet Discharge Activity: Resume usual activity Activity Restrictions/Additional Instructions: follow up with your PCP in the next 4-7 days. Home isolation as instrcuted until COVID PCR test results are obtained Discharge Attestations Time Spent in Discharge Care*: less than 30 min Quality Metrics Clinical Quality Measures During this hospital stay, did patient experience: None Coding Level of Care Code Acute Heat Treatment Technician for Maxim Fwd Diagnoses Acute exacerbation of chronic obstructive airways disease J44.1 On home oxygen therapy Z99.81 Diabetes E11.9 Diabetes mellitus type: type 2 Diabetes mellitus penitentiary insulin use: without penitentiary use Diabetes mellitus complication status: without complication Hypothyroid E03.9 Hypothyroidism type: acquired Hyperlipidemia E78.5 Hyperlipidemia type: unspecified Hypertension I10 Hypertension type: essential hypertension Nicotine dependence F17.200
--- NOTE | 2020-05-27 16:58 | DCPLANNER ---
Pt is Covid rule out however is being d/c'd. She uses 02 at home, mostly at night, prn thru the day. She qualifies for 4L now. She uses [facility] for her 02 per the Nurse. Supervising Bailiff asks for and receives a new 02 order and will fax it to [facility]. Pt's ride is bringing an 02 bottle from home for transport.
[2020-05-28 13:20] LABS: Coronavirus Lab Test PTC Negative
--- NOTE | 2020-05-31 13:04 | PC.RESP ---
Smoking Cessation and Pulmonary Rehab information sent to patient.
== END 2020-05-27 17:00 | disposition home or self-care (01) | DRG 189 ==
LOC: ER 12:55 → MEDSURG 20:48
PROVIDERS: Emergency Medicine; Admitting Provider Student in an Organized Health Care Education/Training Program; Visit Provider Student in an Organized Health Care Education/Training Program
DX: J96.01 Acute respiratory failure with hypoxia (principal); J44.1 Chronic obstructive pulmonary disease with (acute) exacerbation; J96.02 Acute respiratory failure with hypercapnia; Z99.81 Dependence on supplemental oxygen; E11.42 Type 2 diabetes mellitus with diabetic polyneuropathy; I10 Essential (primary) hypertension; G89.29 Other chronic pain; F40.240 Claustrophobia; F32.9 Major depressive disorder, single episode, unspecified; E78.5 Hyperlipidemia, unspecified; E03.9 Hypothyroidism, unspecified; Z86.718 Personal history of other venous thrombosis and embolism; Z79.01 Long term (current) use of anticoagulants; Z79.51 Long term (current) use of inhaled steroids; Z79.84 Long term (current) use of oral hypoglycemic drugs
CPT/HCPCS: 12345; 36415; 36416; 36600; 71045; 80051; 80053; 81003; 82803; 82810; 82962; 83605; 83735; 83880; 83986; 84145; 84484; 85025; 85610; 87040; 87426; 87635; 87804; 93005; 94640; 94660; 94664; 96372; 96375; 99284; J0696; J1815; J2920; J2930; J3490; J3535; J7030; Q0144

== ENCOUNTER → 2020-08-03 13:51 | Outpatient (BNVA) | payer MEDICARE, SELFPAY | DX: E03.9 Hypothyroidism, unspecified (principal); E11.9 Type 2 diabetes mellitus without complications; E78.5 Hyperlipidemia, unspecified; I10 Essential (primary) hypertension; M79.672 Pain in left foot; S92.535A Nondisplaced fracture of distal phalanx of left lesser toe(s), initial encounter for closed fracture; J44.9 Chronic obstructive pulmonary disease, unspecified; X58.XXXA Exposure to other specified factors, initial encounter | CPT/HCPCS: 73630; 80053; 80061; 83036; 84443; 85025 ==

== ENCOUNTER → 2021-02-21 15:01 | Outpatient (BNVA) | payer MEDICARE, SELFPAY | PROVIDERS: PCP Family Medicine; Visit Provider Family Medicine | DX: E11.9 Type 2 diabetes mellitus without complications (principal); E03.9 Hypothyroidism, unspecified; E78.5 Hyperlipidemia, unspecified; I10 Essential (primary) hypertension; J44.9 Chronic obstructive pulmonary disease, unspecified | CPT/HCPCS: 80053; 80061; 83036; 83721; 84443 ==

== ENCOUNTER → 2021-06-25 18:02 | Outpatient (BNVA) | payer MEDICARE, SELFPAY | PROVIDERS: PCP Family Medicine; Visit Provider Nurse Practitioner Family | DX: E11.9 Type 2 diabetes mellitus without complications (principal); E03.9 Hypothyroidism, unspecified | CPT/HCPCS: 80053; 80061; 82043; 83036; 83721; 84443; 85025 ==

== ENCOUNTER → 2021-12-23 17:05 | Outpatient (BNVA) | payer MEDICARE, SELFPAY | PROVIDERS: PCP Family Medicine; Visit Provider Family Medicine | DX: E03.9 Hypothyroidism, unspecified (principal); E11.9 Type 2 diabetes mellitus without complications; E78.5 Hyperlipidemia, unspecified; I10 Essential (primary) hypertension; L91.8 Other hypertrophic disorders of the skin | CPT/HCPCS: 80053; 80061; 83036; 83721; 84443; 85025 ==

== ENCOUNTER → 2022-07-15 13:00 | Outpatient (BNVA) | payer MEDICARE, SELFPAY | PROVIDERS: PCP Family Medicine; Visit Provider Family Medicine | DX: J44.9 Chronic obstructive pulmonary disease, unspecified (principal); I10 Essential (primary) hypertension; E78.5 Hyperlipidemia, unspecified; E03.9 Hypothyroidism, unspecified; E11.9 Type 2 diabetes mellitus without complications; F32.9 Major depressive disorder, single episode, unspecified; Z23 Encounter for immunization; N95.1 Menopausal and female climacteric states | CPT/HCPCS: 80053; 80061; 83036; 84443; 85025 ==

== ENCOUNTER → 2023-01-21 11:22 | Outpatient (BNVA) | payer MEDICARE, SELFPAY | PROVIDERS: PCP Family Medicine; Visit Provider Family Medicine | DX: J44.9 Chronic obstructive pulmonary disease, unspecified (principal); F41.9 Anxiety disorder, unspecified; E11.9 Type 2 diabetes mellitus without complications; E03.9 Hypothyroidism, unspecified; E78.5 Hyperlipidemia, unspecified | CPT/HCPCS: 80053; 80061; 83036; 84443; 85025 ==

== ENCOUNTER → 2023-09-08 11:31 | Outpatient (BNVA) | payer MEDICARE, SELFPAY | PROVIDERS: PCP Family Medicine; Visit Provider Family Medicine | DX: I10 Essential (primary) hypertension (principal); E78.5 Hyperlipidemia, unspecified; E11.9 Type 2 diabetes mellitus without complications; E03.9 Hypothyroidism, unspecified | CPT/HCPCS: 80053; 80061; 83036; 84443; 85025 ==

== ENCOUNTER → 2024-06-30 11:15 | Outpatient (BNVA) | payer MEDICARE, MEDICAID, SELFPAY | PROVIDERS: PCP Nurse Practitioner Family; Visit Provider Nurse Practitioner Family | DX: E11.9 Type 2 diabetes mellitus without complications (principal); I10 Essential (primary) hypertension | CPT/HCPCS: 80053; 80061; 83036; 83721; 84443; 85025 ==

== ENCOUNTER → 2024-11-16 14:10 | Outpatient (BNVA) | payer MEDICARE, SELFPAY | PROVIDERS: PCP Nurse Practitioner Family; Visit Provider Obstetrics & Gynecology | DX: Z01.419 Encounter for gynecological examination (general) (routine) without abnormal findings (principal) | CPT/HCPCS: 87624 ==

== ENCOUNTER → 2024-12-01 11:06 | Outpatient (BNVA) | payer MEDICARE, SELFPAY | PROVIDERS: PCP Nurse Practitioner Family; Visit Provider Obstetrics & Gynecology | DX: N81.4 Uterovaginal prolapse, unspecified (principal) | CPT/HCPCS: 76830 ==

== ENCOUNTER 2025-03-28 12:34 | Outpatient (CLI) | payer MEDICARE, SELFPAY | END 2025-03-28 12:35 | disposition home or self-care (01) | PROVIDERS: PCP Nurse Practitioner Family; Visit Provider Nurse Practitioner Family | DX: I10 Essential (primary) hypertension (principal); E11.9 Type 2 diabetes mellitus without complications | CPT/HCPCS: 80053; 80061; 83036; 83721; 84443; 85025 ==

== ENCOUNTER → 2025-07-04 13:31 | Outpatient (BNVA) | payer MEDICARE, SELFPAY | PROVIDERS: PCP Nurse Practitioner Family; Visit Provider Nurse Practitioner Family | DX: M85.88 Other specified disorders of bone density and structure, other site (principal); I70.90 Unspecified atherosclerosis; M47.9 Spondylosis, unspecified | CPT/HCPCS: 71046 ==

== ENCOUNTER 2025-08-28 14:11 | Outpatient (CLI) | payer MEDICARE, SELFPAY ==
--- NOTE | 2025-08-28 14:17 | MM_ITS ---
WS: [id number] BILATERAL 3D TOMOSYNTHESIS DIGITAL SCREENING MAMMOGRAPHY WITH CAD CLINICAL INFORMATION: ANNUAL SCREEN HISTORY: Screening mammogram. No current complaints. COMPARISON: 2013 TECHNIQUE: Bilateral CC and MLO views. FINDINGS: Scattered fibroglandular densities bilaterally. No suspicious focal mass, asymmetry, calcifications, or architectural distortion. No evidence of malignancy. Incidental punctate lucent centered calcifications. Stable nodularity anterior RIGHT breast MM/MM scr BI tomosynthesis [id number] IMPRESSION: DENSITY: There are scattered areas of fibroglandular density. BI-RADS: 2 - Benign. FOLLOW UP: 1 Year Follow-up Recommend return to annual screening mammography.
== END 2025-08-28 14:12 | disposition home or self-care (01) ==
LOC: RAD 14:12
PROVIDERS: PCP Nurse Practitioner Family; Visit Provider Nurse Practitioner Family
DX: Z12.31 Encounter for screening mammogram for malignant neoplasm of breast (principal); R92.323 Mammographic fibroglandular density, bilateral breasts; R92.1 Mammographic calcification found on diagnostic imaging of breast; N63.10 Unspecified lump in the right breast, unspecified quadrant
CPT/HCPCS: 77063; 77067